=== PATIENT | female | born 1980 | race Caucasian/White ===

== ENCOUNTER 2023-04-04 15:45 | Outpatient (REF) | payer MEDICAID, SELFPAY ==
[2023-04-04 18:57] LABS: Hemoglobin A1C 5.5 % (<5.7)
[2023-04-04 18:58] LABS: ALT 23 U/L (14-59); AST 20 U/L (15-37); Albumin 3.8 g/dL (3.4-5.0); Alkaline Phosphatase 59 U/L (46-116); Anion Gap 10.2 mmol/L (3-11); BUN 11 mg/dL (7-18); Bilirubin, Total 0.4 mg/dL (0.2-1.0); CO2 25.8 mmol/L (21.0-32.0); CREATININE 0.7 mg/dL (0.55-1.02); Calcium 8.5 mg/dL (8.5-10.1); Calculated LDL 86 mg/dL (<100); Chloride 106 mmol/L (98-107); Cholesterol 157 mg/dL (<200); Estimated GFR 109.98 (mL/min/1.73m2); Glucose 93 mg/dL (74-106); HDL Cholesterol 57 mg/dL (40-60); Potassium 4.1 mmol/L (3.5-5.1); Sodium 142 mmol/L (136-145); Total Protein 7.2 g/dL (6.4-8.2); Triglyceride 71 mg/dL (<150)
== END 2023-04-04 15:46 | disposition home or self-care (01) ==
LOC: NCHCN 15:45
PROVIDERS: PCP Nurse Practitioner; Visit Provider Family Medicine
DX: Z00.00 Encounter for general adult medical examination without abnormal findings (principal)
CPT/HCPCS: 80053; 80061; 83036

== ENCOUNTER 2023-06-27 16:13 | Outpatient (REF) | payer MEDICAID, SELFPAY ==
[2023-06-27 14:40] LABS: Anion Gap 7.5 mmol/L (3-11); BUN 9 mg/dL (7-18); CO2 27.5 mmol/L (21.0-32.0); CREATININE 0.8 mg/dL (0.55-1.02); Calcium 9.6 mg/dL (8.5-10.1); Chloride 106 mmol/L (98-107); Estimated GFR 93.12 (mL/min/1.73m2); Glucose 102 mg/dL (74-106); Potassium 4.7 mmol/L (3.5-5.1); Sodium 141 mmol/L (136-145)
== END 2023-06-27 16:14 | disposition home or self-care (01) ==
LOC: NCHCN 16:13
PROVIDERS: Visit Provider Family Medicine
DX: I10 Essential (primary) hypertension (principal); E66.9 Obesity, unspecified
CPT/HCPCS: 80048

== ENCOUNTER 2024-06-10 19:04 | Emergency (ER) | payer MEDICAID, SELFPAY ==
[2024-06-10 19:05] VITALS: BP 138/88; PULSE 84; RESP 12; TEMP 36.2; O2SAT 98
--- NOTE | 2024-06-10 19:15 | DI.RAD_ITS ---
Exam(s) XR HAND LT COMPLETE EXAM: XR HAND LT COMPLETE CLINICAL HISTORY: Fall onto outstretched hand. TECHNIQUE: 2D digital imaging was performed. Three views. COMPARISON: No exams were available for comparison FINDINGS: BONES: No acute fracture is present. No bony destructive lesion is seen. JOINTS: No dislocation present. SOFT TISSUE: Normal. IMPRESSION: Unremarkable radiographs of the left hand. DATA REPOSITORY: RADIATION DOSE DELIVERED:
--- NOTE | 2024-06-10 19:16 | W.ED.GENAD ---
Discharge Plan Disposition Patient Disposition: Home Condition: Stable Discharge Details Clinical Impression: Sprain of hand, left Primary Care Provider: Charley Peter ED Provider: Lizz Hill Home Meds and New Rx's Prescriptions: No Action losartan [Cozaar] 50 mg tablet 50 mg PO DAILY Discharge Instructions Instructions: Using Cold for Pain, Finger Sprain Exercises Additional Instructions: At this time no evidence of fracture on the x-ray. I do suspect that you sprained your hand. Rest ice compression elevation. Wear the splint as needed for comfort. Follow up with primary care provider in 3-5 days. Return to ED sooner if any worsening or concerns. Please take Tylenol or Ibuprofen with food every 4-6 hours as needed for pain and swelling. Referrals: Charley Peter [Primary Care Provider] - 1 week HPI General Mode of arrival: ambulatory. Date/Time Provider Initiated Documentation: 06/10/24 19:10. Limitations to Documentation: no limitations. Information obtained by: patient, RN notes reviewed and old records reviewed. HPI Narrative: 44-year-old female presents to the ER with a chief complaint of left hand swelling and pain after mechanical fall earlier today. She does have some swelling noted to the dorsum of her hand at the base of her third and fourth digits. She also has pain with movement of her fingers. She is able to flex and extend her wrist with some pain. No other complaints or injuries from the fall. Related Data Home Medications ?Medication ?Instructions ?Recorded ?Confirmed losartan 50 mg tablet (Cozaar) 50 mg PO DAILY 06/10/24 06/10/24 Allergies Allergy/AdvReac Type Severity Reaction Status Date / Time aspirin Allergy Severe Anaphylaxis Verified 06/10/24 19:09 codeine Allergy Severe Anaphylaxis Verified 06/10/24 19:09 General Stated Complaint: Orthopedic CHU: 3 Review of Systems Musculoskeletal Musculoskeletal: Reports as per HPI and Reports arthralgias Exam Const General: cooperative, healthy appearing, well developed and well groomed Nutritional Appearance: average body habitus and well nourished Orientation: alert, awake and oriented x3 Extrem Left upper extremity: hand Details: normal capillary refill, tenderness Location: of the dorsal hand and swelling Course Vital Signs Vital signs: Vital Signs Temperature 36.2 C L 06/10/24 19:05 Pulse 84 06/10/24 19:05 Respiratory Rate 12 06/10/24 19:05 Blood Pressure 138/88 06/10/24 19:05 Pulse Oximetry 98 06/10/24 19:05 Temperature 36.2 C L 06/10/24 19:05 Pulse 84 06/10/24 19:05 Respiratory Rate 12 06/10/24 19:05 Respiratory Effort Normal 06/10/24 19:10 Blood Pressure 138/88 06/10/24 19:05 Pulse Oximetry 98 06/10/24 19:05 Oxygen Delivery Method Room Air 06/10/24 19:05 Oxygen Flow Rate 0 06/10/24 19:05 Pain Level 6 06/10/24 19:05 Medical Decision Making 44-year-old female presents to the ER with a chief complaint of left hand swelling and pain after mechanical fall earlier today. She does have some swelling noted to the dorsum of her hand at the base of her third and fourth digits. She also has pain with movement of her fingers. She is able to flex and extend her wrist with some pain. No other complaints or injuries from the fall. X-ray ordered. X-ray within normal limits, patient placed in a Jeff wrap and universal wrist splint. Instructed on RICE procedures and home care. This text was generated using [employer] dictation system, please disregard any oddities of phrase or misspellings. Imaging Data Radiologic Study: Imaging: X-Ray Radiologist's impression: Exam(s) PROCEDURE INFORMATION: Exam: XR Left Hand Exam date and time: 06/10/2024 7:24 PM Age: 44 years old Clinical indication: Other: Fall onto outstretched hand TECHNIQUE: Imaging protocol: Radiologic exam of the left hand. Views: 3 or more views. COMPARISON: No relevant prior studies available. FINDINGS: Bones/joints: Osseous alignment is normal. No acute fracture. No significant arthritic change. Soft tissues: Normal. IMPRESSION: Negative left hand Quality:SDOH Health Related Social Needs: No Data to Display PFSH All Active Problems (Updated 06/10/24 @ 20:30 by Lizz Hill NP) Sprain of hand, left (Acute) Social History Smoking/Tobacco Use Status: Never Smoking risk assessment performed?: Yes Alcohol Intake: never Drug use: Never Housing: house Do you feel safe at home: Yes Do you feel safe in your relationship?: Yes
--- NOTE | 2024-06-10 20:26 | DI.VRAD_ITS ---
PROCEDURE INFORMATION: Exam: XR Left Hand Exam date and time: 06/10/2024 7:24 PM Age: 44 years old Clinical indication: Other: Fall onto outstretched hand TECHNIQUE: Imaging protocol: Radiologic exam of the left hand. Views: 3 or more views. COMPARISON: No relevant prior studies available. FINDINGS: Bones/joints: Osseous alignment is normal. No acute fracture. No significant arthritic change. Soft tissues: Normal. IMPRESSION: Negative left hand Dictated and Authenticated by: George Aguilar MD. Ordering:LANDRY Zamudio MD
[2024-06-10 20:43] VITALS: BP 153/87; PULSE 89; RESP 22; TEMP 37.2; O2SAT 98
== END 2024-06-10 21:00 | disposition home or self-care (01) ==
PROVIDERS: Emergency Provider Registered Nurse Emergency; PCP Family Medicine
DX: S63.92XA Sprain of unspecified part of left wrist and hand, initial encounter (principal); W01.0XXA Fall on same level from slipping, tripping and stumbling without subsequent striking against object, initial encounter; Y93.01 Activity, walking, marching and hiking; Y92.480 Sidewalk as the place of occurrence of the external cause
CPT/HCPCS: 81025; 99284; 73130; 99283